=== PATIENT | male | born 1960 | race Caucasian/White ===

== ENCOUNTER 2020-09-27 08:23 | Observation (INO) | payer MEDICARE, MEDICAID ==
[~2020-09-27] VITALS: Ht 177.8 cm; Wt 137.3 kg
[~2020-09-27 08:23] MED LIST: ALBU8.5H8 INH; BUME2TAB7 PO; CEFD300C3 PO; FLO0.4C PO; FLUT1BLS4 IH; GLIM1TAB6 PO; HYDR-4069 PO; LACT1CAP26 PO; LINA5TAB4 PO; LISI20TA28 PO; NYSPWD TP; PRED10TA23 PO
[2020-09-27 10:04] LABS: BASOPHILS % (AUTO) 0.7 % (0-1); EOSINOPHILS # (AUTO) 0.1 X10'3 (0-0.9); HEMATOCRIT 42.3 % (42.0-52.0); HEMOGLOBIN 13.5 g/dl (14.0-17.9); LYMPHOCYTES # (AUTO) 0.7 X10'3 (1.1-4.8); LYMPHOCYTES % (AUTO) 15.1 % (21-51); MEAN CORPUSCULAR HEMOGLOBIN 28.6 PG (27.0-31.0); MEAN CORPUSCULAR HGB CONC 31.9 g/dL (33.0-36.5); MEAN CORPUSCULAR VOLUME 89.8 FL (78-98); MEAN PLATELET VOLUME 8.3 FL (7.4-10.4); MONOCYTES # (AUTO) 0.3 X10'3 (0-0.9); MONOCYTES % (AUTO) 7.1 % (2-12); NEUTROPHILS # (AUTO) 3.4 X10'3 (1.8-7.7); NEUTROPHILS % (AUTO) 74.1 % (42-75); PLATELET COUNT 112 X10'3 (140-440); RED BLOOD COUNT 4.71 X10'6 (4.70-6.10); RED CELL DISTRIBUTION WIDTH 15.5 % (11.5-14.5); WHITE BLOOD COUNT 4.6 X10'3 (4.5-11.0)
[2020-09-27 10:17] LABS: ALANINE AMINOTRANSFERASE 57 U/L (12-78); ALBUMIN/GLOBULIN RATIO 0.9 (1.1-1.5); ALKALINE PHOSPHATASE 86 IU/L (46-116); ANION GAP 2 (8-16); ASPARTATE AMINO TRANSFERASE 19 U/L (10-37); BILIRUBIN,TOTAL 1.4 MG/DL (0.1-1.0); BLOOD UREA NITROGEN 25 MG/DL (7-18); BUN/CREATININE RATIO 22.5 (5.4-32.0); CALCIUM 8.7 MG/DL (8.5-10.1); CHLORIDE 106 MMOL/L (99-107); CREATININE 1.11 MG/DL (0.60-1.10); GLUCOSE 131 MG/DL (70-104); MAGNESIUM 2.2 MG/DL (1.5-2.4); POTASSIUM 4.4 MMOL/L (3.5-5.1); SODIUM 150 MMOL/L (135-145); TOTAL PROTEIN 6.5 G/DL (6.4-8.2); eGFR 67 ML/MIN
[2020-09-27 10:19] LABS: TOTAL CARBON DIOXIDE 41.8 MMOL/L (24-32)
[2020-09-27] MEDS ORDERED: normal saline 1000ml 1,000 ML IV SCH (10:20)
[2020-09-27] MEDS ORDERED: acetaminophen 325mg tablet PO PRN ×2 (10:20)
[2020-09-27] MEDS ORDERED: dextrose 50%-water 50ml dispensing syringe IV PRN ×2 (10:20)
[2020-09-27] MEDS ORDERED: potassium Cl 20 mEq SR tablet PO PRN ×2 (10:20)
[2020-09-27] MEDS ORDERED: potassium Cl 40MEQ/1/2NS 520ml 520 ML IV PRN ×2 (10:20)
[2020-09-27] MEDS ORDERED: dextrose ORAL solution 15 GM/59 ML bottle PO PRN ×2 (10:20)
[2020-09-27] MEDS ORDERED: magnesium Cl slow-release 64mg tablet PO PRN (10:20)
[2020-09-27] MEDS ORDERED: ondansetron/PF 4mg/2ml inj IV PRN (10:20)
[2020-09-27] MEDS ORDERED: magnesium 4gm in 100ml NS 100 ML IV PRN (10:20)
[2020-09-27] MEDS ORDERED: MESSAGE TO PHARMACY PO ONE (10:20)
[2020-09-27] MEDS ORDERED: magnesium 2GM in 50ml NS 50 ML IV PRN (10:20)
[2020-09-27] MEDS ORDERED: glucagon, human recombinant 1mg kit SUBCUT PRN (10:20)
[2020-09-27 10:34] LABS: HEMOGLOBIN A1C 7.5 % (4.5-6.2)
[2020-09-27] MEDS ORDERED: ALBU8.5H8 INH (10:35)
[2020-09-27] MEDS ORDERED: LACT1CAP26 PO (10:40)
[2020-09-27] MEDS ORDERED: HYDR-4069 PO (10:40)
[2020-09-27] MEDS ORDERED: LISI20TA28 PO (10:40)
[2020-09-27] MEDS: methylPREDNISolone sod succ 125mg/2ml vial IV SCH ×2 (11:47→21:28)
[2020-09-27] MEDS: CefTRIAXone 2gm/D5W 50ml BAG 50 ML IV SCH (11:48)
[2020-09-27 12:53] LABS: CLARITY,URINE CLEAR (Clear); COLOR,URINE YELLOW (Yellow); GLUCOSE, URINE NEGATIVE (Neg); KETONES,URINE NEGATIVE (Neg); LEUKOCYTE ESTERASE ,URINE NEGATIVE (Neg); NITRITES, URINE NEGATIVE (Neg); OCCULT BLOOD,URINE NEGATIVE (Neg); PROTEIN,URINE >=300 mg/dl (Neg); UROBILINOGEN,URINE 0.2 E.U/dL (0.2-1.0)
[2020-09-27 12:55] LABS: UA COLLECTION TYPE URINAL
[2020-09-27 13:08] LABS: SQUAMOUS EPITHELIAL CELL,UR FEW /LPF (FEW); TRANSITIONAL EPI CELLS,URINE FEW /HPF
[2020-09-27 13:09] LABS: BACTERIA,URINE NONE SEEN /HPF (Neg); RBC,URINE 0-2 /HPF (0-2); WBC,URINE NONE SEEN /HPF (0-4)
[2020-09-27 13:11] LABS: URINE AMPHETAMINE SCREEN NEGATIVE (Neg); URINE BARBITUATE SCREEN NEGATIVE (Neg); URINE BENZODIAZEPINES SCREEN NEGATIVE (Neg); URINE CANNABINOID SCREEN NEGATIVE (Neg); URINE COCAINE SCREEN NEGATIVE (Neg); URINE METHADONE SCREEN NEGATIVE (Neg); URINE OPIATE SCREEN NEGATIVE (Neg); URINE PHENCYCLIDINE SCREEN NEGATIVE (Neg)
[2020-09-27] MEDS: albuterol 2.5 MG/3 ML nebule NEB SCH ×2 (14:17→21:10)
[2020-09-27 14:30] LABS: ABG BASE EXCESS 11.4 mmol/L (-2.0-2.0); ABG HCO3 39.6 mmol/L (22.0-26.0); ABG OXYGEN SATURATION 89.3 % (94-97); ABG PCO2 (T) 67.5 mmHg (35.0-48.0); ABG PO2 (T) 54.4 mmHg (75.0-100.0); ALLEN'S TEST POSITIVE; FCOHb 1.1 % (0.0-3.9); FLOW 3 L/min; FMetHb 0.1 % (0.0-1.5); FO2Hb 88.2 % (94-97); TOTAL HEMOGLOBIN 14.8 G/dl (14.0-18.0)
--- NOTE | 2020-09-27 15:36 | NUR ---
Patient in room ED 1. I have received report from Ankita ELIZABETH and had the opportunity to ask questions and assume patient care.
--- NOTE | 2020-09-27 16:49 | NUR ---
Page Sent PAGER ID: [phone] MESSAGE: GULSHAN ELIZABETH [id number] RE: [facility]J [facility] ROOM 4014A... PT CURRENTLY IN [address] BLOCK. THANK YOU
[2020-09-27] MEDS ORDERED: albuterol 2.5 MG/3 ML nebule NEB PRN (17:50)
[2020-09-27 18:00] VITALS: BP 157/75
--- NOTE | 2020-09-27 18:39 | NUR ---
Problems reprioritized. Patient report given, questions answered & plan of care reviewed with Krystyna ELIZABETH.
[2020-09-27] MEDS: insulin Lispro (HumaLOG) vial - multi-dose SQ SCH ×2 (18:57→21:39)
--- NOTE | 2020-09-27 19:07 | NUR ---
PAGER ID: [phone] MESSAGE: Re: 4014A october I have an order for CPAP - patient wears one at home. Has RT ordered already. call opal [phone] (110 character message out of a maximum of [phone])
[2020-09-27] MEDS: K and/or MAG REPLACEMENT MC SCH (20:00)
--- NOTE | 2020-09-27 20:26 | NUR ---
Page Sent PAGER ID: [phone] MESSAGE: can I have an order for CPAP please. for 4014A 2nd page. please call opal at [phone] thanks
[2020-09-27] MEDS ORDERED: insulin glargine (Lantus) pen - multi-dose SQ SCH (21:00)
[2020-09-27] MEDS: docusate sod 100mg capsule PO SCH (21:28)
[2020-09-27] MEDS: heparin, porcine 5000 units/ml vial SQ SCH (21:29)
[2020-09-27] MEDS: hydrALAZINE 25 MG tablet PO SCH (21:33)
[2020-09-27 22:00] VITALS: BP 176/76
--- NOTE | 2020-09-27 23:37 | NUR ---
tried to DART patient. he stated that it would be fine at first, but then stated that he "wasn't going to answer any goddamn questions" after starting the DART process. Did not continue. He also has stated that it was "none of my business"
--- NOTE | 2020-09-28 02:47 | NUR ---
recalled information for DART, as I read that patient was here last month
[2020-09-28] MEDS: albuterol 2.5 MG/3 ML nebule NEB SCH ×2 (03:00→08:39)
--- NOTE | 2020-09-28 06:14 | NUR ---
Problems reprioritized. Patient report given, questions answered & plan of care reviewed with GLENN Catherine.
[2020-09-28 06:52] VITALS: BP 159/83
[2020-09-28 07:04] LABS: BASOPHILS % (AUTO) 0.1 % (0-1); EOSINOPHILS % (AUTO) 0 % (0-6); HEMATOCRIT 45.1 % (42.0-52.0); HEMOGLOBIN 14.4 g/dl (14.0-17.9); LYMPHOCYTES # (AUTO) 0.2 X10'3 (1.1-4.8); LYMPHOCYTES % (AUTO) 4.3 % (21-51); MEAN CORPUSCULAR HEMOGLOBIN 28.3 PG (27.0-31.0); MEAN CORPUSCULAR HGB CONC 31.9 g/dL (33.0-36.5); MEAN CORPUSCULAR VOLUME 88.6 FL (78-98); MEAN PLATELET VOLUME 9.5 FL (7.4-10.4); MONOCYTES # (AUTO) 0.1 X10'3 (0-0.9); NEUTROPHILS # (AUTO) 5.4 X10'3 (1.8-7.7); NEUTROPHILS % (AUTO) 94.6 % (42-75); PLATELET COUNT 131 X10'3 (140-440); RED BLOOD COUNT 5.09 X10'6 (4.70-6.10); RED CELL DISTRIBUTION WIDTH 15.5 % (11.5-14.5); WHITE BLOOD COUNT 5.7 X10'3 (4.5-11.0)
[2020-09-28 07:16] LABS: ALANINE AMINOTRANSFERASE 59 U/L (12-78); ALBUMIN/GLOBULIN RATIO 0.7 (1.1-1.5); ALKALINE PHOSPHATASE 94 IU/L (46-116); ANION GAP 4 (8-16); ASPARTATE AMINO TRANSFERASE 21 U/L (10-37); BLOOD UREA NITROGEN 25 MG/DL (7-18); BUN/CREATININE RATIO 21.6 (5.4-32.0); CALCIUM 8.9 MG/DL (8.5-10.1); CHLORIDE 105 MMOL/L (99-107); CREATININE 1.16 MG/DL (0.60-1.10); GLUCOSE 277 MG/DL (70-104); MAGNESIUM 2.4 MG/DL (1.5-2.4); SODIUM 147 MMOL/L (135-145); TOTAL CARBON DIOXIDE 38.3 MMOL/L (24-32); TOTAL PROTEIN 7.1 G/DL (6.4-8.2); eGFR 64 ML/MIN
[2020-09-28 07:17] LABS: POTASSIUM 4.7 MMOL/L (3.5-5.1)
[2020-09-28] MEDS: K and/or MAG REPLACEMENT MC SCH (08:00)
[2020-09-28] MEDS ORDERED: bumetanide 1mg tablet PO SCH (08:00)
[2020-09-28] MEDS ORDERED: tamsulosin 0.4mg capsule PO SCH (08:00)
[2020-09-28] MEDS ORDERED: Fluticasone/Umeclidin/Vilanter (Trelegy Ellipta 100-62.5-25) INHALER IH SCH (08:00)
[2020-09-28] MEDS ORDERED: lisinopril 20mg tablet PO SCH (08:00)
[2020-09-28] MEDS: insulin Lispro (HumaLOG) vial - multi-dose SQ SCH ×2 (08:12→13:30)
[2020-09-28] MEDS: methylPREDNISolone sod succ 125mg/2ml vial IV SCH (08:17)
[2020-09-28] MEDS: heparin, porcine 5000 units/ml vial SQ SCH (08:17)
[2020-09-28] MEDS: CefTRIAXone 2gm/D5W 50ml BAG 50 ML IV SCH (08:17)
[2020-09-28] MEDS: hydrALAZINE 25 MG tablet PO SCH (08:18)
[2020-09-28] MEDS: docusate sod 100mg capsule PO SCH (08:19)
[2020-09-28 10:06] VITALS: BP 162/75
[2020-09-28] MEDS ORDERED: METF-438 PO (12:15)
--- NOTE | 2020-09-28 13:49 | NUR ---
DM Consult: Pt admit w/ ingestion error possible took 6 glimepiride instead of 1 OFFICE [facility] per EMR. Glu 238 up from 106 on admit receiving solumedrol w/ hx COPD and CHF. Pt seen by RD for written/verbal DM ed w/ RD contact information provided. Pt reports takes Lantus at home but does not know name of other DM meds as sister manages diet/meds mostly; this is conflicted as pt reports he snacks each time he goes by the fridge. RD reinforced importance of balanced meals including fiber, protein, whole grains, vegetables to avoid snacking too much between meals. RD encouraged pt to contact dietitian's office if further questions/concerns. Addendum: 09/28/20 at [address] Amended: Links added.
--- NOTE | 2020-09-28 14:42 | NUR ---
Pt left cane in room. 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 Label placed on cane.
[2020-09-28] MEDS ORDERED: lactobacillus rhamnosus 10,000 MMU CELLS/CAPSULE PO SCH (20:00)
== END 2020-09-28 14:20 | disposition home or self-care (01) ==
LOC: ER 08:24 → ED HOLD 10:19 → ORTHO 4S 15:30
PROVIDERS: ADMIT Internal Medicine; ATTEND Internal Medicine
DX: T38.3X1A Poisoning by insulin and oral hypoglycemic [antidiabetic] drugs, accidental (unintentional), initial encounter (principal); I27.20 Pulmonary hypertension, unspecified; I11.0 Hypertensive heart disease with heart failure; I50.9 Heart failure, unspecified; E11.65 Type 2 diabetes mellitus with hyperglycemia; J44.9 Chronic obstructive pulmonary disease, unspecified; N40.0 Benign prostatic hyperplasia without lower urinary tract symptoms; F15.10 Other stimulant abuse, uncomplicated; F12.90 Cannabis use, unspecified, uncomplicated; Z99.81 Dependence on supplemental oxygen; Z72.0 Tobacco use; Z79.84 Long term (current) use of oral hypoglycemic drugs; Z79.899 Other long term (current) drug therapy
CPT/HCPCS: 36415; 36600; 80053; 80305; 81001; 82803; 82948; 83036; 83605; 83735; 85018; 85025; 87040; 87081; 93005; 94640; 94760; 96365; 96366; 96372; 96375; 96376; 97161; 97530; 99284; G0378; J0696; J1644; J1815; J2930; J7030